=== PATIENT | female | born 1995 | race Caucasian/White ===

== ENCOUNTER 2016-08-16 22:26 | Emergency (ER) | payer OTHER ==
[~2016-08-16] VITALS: Ht 165.1 cm; Wt 56.2 kg
--- NOTE | 2016-08-16 23:21 | ED GI/GU/ABDOMINAL COMPLAINT ---
History of Present Illness General Chief Complaint: Female Urogenital Problems Stated Complaint: ?YEAST INFECTION Source: patient Exam Limitations: no limitations Vital Signs & Intake/Output Vital Signs & Intake/Output Vital Signs Date Time Temp Pulse Resp B/P B/P Pulse O2 O2 Flow FiO2 Mean Ox Delivery Rate 08/17 2235 99.5 96 16 111/75 98 Room Air Allergies Coded Allergies: No Known Allergies (08/16/16) Reconcile Medications Fluconazole (Diflucan) 100 MG TABLET 1 TAB PO BID YEAST INFECTION Triage Note: TRIAGE: DIAGNOSED WITH ACUTE VAGINITIS AND YEAST INFX 5 DAYS AGO, GIVEN DIFLUCAN ONCE AND SYMPTOMS UNIMPROVED. DENIES PAIN OR CRAMPING. DISCHARGE IS OFF WHITE. ITCHINESS IMPROVED. GIVEN URINE CUP TO PROVIDE SAMPLE. REPORTS THERE IS A CHANCE OF . Triage Nurses Notes Reviewed? yes ? N Is pt currently ? No HPI: Patient presents with thick white vaginal discharge. Patient states that she was diagnosed with bacterial vaginosis 2 weeks ago. Patient was given Flagyl. Patient states that the Flagyl and gave her a yeast infection. Patient went to see her doctor who gave her one pill of Diflucan. Patient took Diflucan but she continues to have the vaginal discharge. Patient is now having little dysuria but denies any urinary frequency or urgency. There are no fevers or chills. Past History Travel History Traveled to [place] past 21 day No Medical History Any Pertinent Medical History? none Neurological: NONE EENT: NONE Cardiovascular: NONE Respiratory: NONE Gastrointestinal: NONE Hepatic: NONE Renal: NONE Musculoskeletal: NONE Psychiatric: NONE Endocrine: NONE Blood Disorders: NONE Cancer(s): NONE [employer]ELOPER/Reproductive: HPV Surgical History Surgical History: non-contributory Psychosocial History What is your primary language Bel[place]ian Tobacco Use: Current Not Daily ETOH Use: occasional use Illicit Drug Use: denies illicit drug use Family History Hx Contributory? No Review of Systems Review of Systems Constitutional: Reports: no symptoms. Respiratory: Reports: no symptoms. Cardiovascular: Reports: no symptoms. GI: Reports: no symptoms. Genitourinary: Reports: see HPI, discharge, dysuria. Musculoskeletal: Reports: no symptoms. Neurological/Psychological: Reports: no symptoms. Immunologic/Allergic: Reports: no symptoms. Physical Exam Physical Exam General Appearance: well developed/nourished, alert, awake, mild distress Eyes: Bilateral: PERRL, EOMI. Neck: normal inspection, supple Respiratory: normal breath sounds, chest non-tender, no respiratory distress, lungs clear Cardiovascular: regular rate/rhythm, normal peripheral pulses Gastrointestinal: normal bowel sounds, soft, non-tender, no organomegaly Pelvic: normal external exam, normal bimanual exam, no cerv. motion tender, discharge (THICK WHITE) Back: normal inspection, normal range of motion Neurologic/Psych: no motor/sensory deficits, awake, alert, oriented x 3, normal gait, normal mood/affect Core Measures ACS in differential dx? No Severe Sepsis Present: No Septic Shock Present: No Progress Differential Diagnosis: PID/cervicitis, UTI/pyelo Plan of Care: Orders Procedure Date/time Status TRICHOMONAS 08/16 2333 Active POTASSIUM HYDROXIDE (MARY) 08/16 2333 Active GENITAL CULTURE 08/16 2333 Active CHLAMYDIA-GC DNA PROBE 08/16 2333 Active URINE 08/17 2235 Complete URINALYSIS 08/17 2235 Complete Current Medications Sig/Sheryl Start time Last Medication Dose Stop Time Status Admin Fluconazole 100 MG ONCE ONE 08/16 2344 AC (Diflucan 100MG Tab) 08/16 2345 Laboratory Tests 08/16/160: Urinalysis LIGHT H, Urine Color YEL, Urine Clarity CLDY H, Urine pH 6.0, Ur Specific Jenner 1.025, Urine Protein NEG, Urine Ketones NEG, Urine Nitrite NEG, Urine Bilirubin NEG, Urine Urobilinogen 0.2, Ur Leukocyte Esterase SMALL H, Ur Microscopic SEDIMENT EXAMINED, Urine RBC 50-75 H, Urine WBC > 75 H, Ur Epithelial Cells MOD H, Urine Bacteria MOD H, Urine Mucus FEW, Urine Hemoglobin MOD H, Urine Glucose NEG, Urine Test NEGATIVE Microbiology 08/16 2334 GENITAL: GC DNA Probe - RECD 08/16 2334 GENITAL: Chlamydia DNA Probe (SUSIE) - RECD 08/16 2334 GENITAL: MARY Preparation - RECD 08/16 2334 GENITAL: Trichomonas Preparation - RECD 08/16 2334 GENITAL: Genital Culture - RECD Initial ED EKG: none Departure Departure Disposition: HOME OR SELF CARE Condition: Stable Clinical Impression Primary Impression: Candidiasis, vagina Referrals: PATIENT HAS NO PRIMARY CARE DR (PCP/Family) Additional Instructions: TAKE DIFLUCAN TWICE A DAY FOR 3 DAYS RETURN FOR WORSENING SYMPTOMS OR FOR ANY CONERNS Departure Forms: Customer Survey General Discharge Information Prescriptions: Current Visit Scripts Fluconazole (Diflucan) 1 TAB PO BID #6 TAB
[2016-08-16] MEDS ORDERED: DIFLUCAN100 M1 PO (23:40)
[2016-08-16 23:57] VITALS: BP 108/72
== END 2016-08-16 23:58 ==
LOC: ERH 22:26
DX: B37.3 Candidiasis of vulva and vagina (principal)
CPT/HCPCS: 87070; 81001; 81025; 87491; 87591